=== PATIENT | male | born 1975 | race African-American/Black ===

== ENCOUNTER → 2019-08-28 | Outpatient (CLI) | payer OTHER ==
--- NOTE | 2019-08-28 11:49 | REP ---
Four views right femur: 08/28/2019. Indication: Right leg pain. Comparison: None. Findings: Postoperative sequelae are present status post intramedullary doreen placement and healed mid femoral fracture. There are multiple radiopaque foreign bodies. The largest of which is along the posterior medial aspect of the distal tibia just above the knee. There is no evidence of acute fracture or hardware loosening. Impression: No acute fracture or additional acute pathology detected. Electronically Signed by Brandin Cevallos DO 08/28/2019 11:41 A
== END ==
LOC: M RAD 08:51
PROVIDERS: ATTEND Surgery
DX: M25.551 Pain in right hip (principal)